=== PATIENT | male | born 1935 | race African-American/Black ===

== ENCOUNTER 2021-02-06 11:17 | Emergency (ER) | payer MEDICARE ==
[~2021-02-06 11:17] MED LIST: ASPIRIN CHEWABL81 MG PO; CRESTOR5 MG PO; HCTZ12.5 MG PO; NORVASC2.5 MG PO; SYNTHROID25 MCG PO
[2021-02-06 12:30] LABS: BASOPHIL 0.5 % (0-2); EOSINOPHIL 1.1 % (0-7); HCT 36.9 % (42.0-52.0); HGB 11.6 g/dl (13.2-18.0); LYMPHOCYTE 10.2 % (15-48); MCH 27.1 pg (25.0-31.0); MCHC 31.4 g/dL (32.0-36.0); MCV 86.2 fL (78.0-100.0); MONOCYTE 6.2 % (0-12); MPV 9.5 fL (6.0-9.5); NEUTROPHIL 81.4 % (41-80); NRBC 0; PLT 269 K/uL (150-400); RBC 4.28 M/uL (4.70-6.00); RDW 16.4 % (11.5-14.0); WBC 10.4 K/uL (4.0-10.5)
[2021-02-06 12:38] LABS: ALBUMIN 3.6 g/dL (3.4-5.0); BILIRUBIN - TOTAL 0.4 mg/dL (0.2-1.0); BUN/CREAT RATIO (CALC) 13.3 RATIO; CREATININE 1.5 mg/dL (0.67-1.17); GLOBULIN (CALCULATION) 5.2 g/dL; POTASSIUM 4.7 mmol/L (3.5-5.1); TOTAL PROTEIN 8.8 g/dL (6.4-8.2)
[2021-02-06 12:48] LABS: LACTIC ACID 1.3 mmol/L (0.4-1.9)
[2021-02-06 14:25] LABS: BILIRUBIN NEGATIVE (NEGATIVE); BLOOD NEGATIVE Ery/uL (NEGATIVE); CLARITY CLEAR (CLEAR); COLOR YELLOW (YELLOW); GLUCOSE (U) NORMAL (NORMAL); LEUKOCYTES NEGATIVE Leu/uL (NEGATIVE); NITRITE NEGATIVE (NEGATIVE); PROTEIN 2+ mg/dL (NEGATIVE)
[2021-02-06 15:23] LABS: URINARY WBC RARE
[2021-02-06 15:24] LABS: SQUAMOUS EPITHELIAL CELLS RARE
[2021-02-06] MEDS ORDERED: MIRALAX17 G1 PO (15:30)
== END 2021-02-06 17:57 | disposition home or self-care (01) ==
LOC: FER 11:17
PROVIDERS: Internal Medicine; Nurse Practitioner Family
DX: K59.00 Constipation, unspecified (principal); R11.0 Nausea; I10 Essential (primary) hypertension; F17.210 Nicotine dependence, cigarettes, uncomplicated
CPT/HCPCS: 36415; 80053; 81001; 83605; 83690; 84484; 85025; 93005; J7030